=== PATIENT | male | born 1980 | race African-American/Black ===

== ENCOUNTER 2017-03-30 00:24 | Emergency (ER) | payer BC ==
[~2017-03-30] VITALS: Ht 185.4 cm; Wt 113.4 kg
[2017-03-30] MEDS ORDERED: BUTALB-APAP-CA1 EACH PO (03:17)
[2017-03-30 03:45] VITALS: BP 146/108
== END 2017-03-30 03:21 | disposition home or self-care (01) ==
LOC: EDBD 00:24 → ER 00:24
DX: R51 Headache (principal); R09.81 Nasal congestion; F10.99 Alcohol use, unspecified with unspecified alcohol-induced disorder